=== PATIENT | female | born 1960 | race African-American/Black ===

== ENCOUNTER 2017-09-30 17:25 | Emergency (ER) | payer OTHER ==
[~2017-09-30] VITALS: Ht 177.8 cm; Wt 90.7 kg
[~2017-09-30 17:25] MED LIST: ACETAMINOPHEN-1 EAC1 ORAL; ALBUTEROL SULF8.5 GM INH; AMOXICILLIN500 MG ORAL; AZITHROMYCIN250 MG ORAL; IBUPROFEN600 MG ORAL; NKM; NORCO 5-325 TA1 EACH ORAL; PENICILLIN V P500 MG PO; PROMETHAZINE-C118 M1 ORAL
--- NOTE | 2017-09-30 18:08 | Emergency Room Report ---
History of Present Illness General Chief Complaint: Nausea, Vomiting, and Diarrhea Source: Patient Present Illness HPI 57 yo female presents to ER complaining of flu-like symptoms x5 days. Reports vomiting since yesterday, mostly phlegm in vomit. Patient also complains of cough with sputum. Denies hx of asthma or cardiac disease. Denies history of DM, HTN, hyperlipidemia. Complains of subjective fever. Reports taking Tylenol and Robitussin for relief of symptoms. Complains of difficulty breathing while laying down; reports worsening of symptoms at night. Denies chest pain, SOB, diarrhea, abdominal pain acutely in ER. Denies hx of smoking, drinking, drugs. Reports hx of sick contacts. Allergies: Coded Allergies: No Known Allergies (Unverified , 06/19/13) Patient History Past Medical History: see triage record Social History: Denies: smoking, alcohol use, drug use Immunizations: UTD Reviewed Nursing Documentation: PMH: Agreed, PSxH: Agreed Nursing Documentation-PMH Past Medical History: No Stated History Review of Systems All Other Systems: negative except mentioned in HPI Physical Exam Vital Signs Date Time Temp Pulse Resp B/P (MAP) Pulse Ox O2 Delivery O2 Flow Rate FiO2 09/30/17 17:32 98.4 75 16 145/85 98 Room Air Sp02 EP Interpretation: reviewed, normal General Appearance: no apparent distress, alert, GCS 15, non-toxic Head: normocephalic, atraumatic Eyes: bilateral eye normal inspection, bilateral eye PERRL ENT: hearing grossly normal, normal pharynx, no angioedema, normal voice, TMs + canals normal, uvula midline, nasal congestion, pharyngeal erythema Neck: full range of motion, supple/symm/no masses Respiratory: chest non-tender, lungs clear, normal breath sounds, no rhonchi, no respiratory distress, no accessory muscle use, no wheezing, speaking full sentences Cardiovascular #1: regular rate, rhythm, no edema Cardiovascular #2: 2+ radial (R), 2+ radial (L) Gastrointestinal: normal bowel sounds, non tender, soft, non-distended, no guarding, no rebound Genitourinary: no CVA tenderness Musculoskeletal: back normal, digits/nails normal, gait/station normal, normal range of motion, non-tender Neurologic: alert, oriented x3, responsive, motor strength/tone normal, sensory intact, speech normal Psychiatric: mood/affect normal Skin: normal color, no rash, warm/dry, palpation normal, well hydrated Lymphatic: no adenopathy Medical Decision Making PA Attestation Dr. Garza is my supervising Physician whom patient management has been discussed with. Diagnostic Impression: Primary Impression: Upper respiratory infection, acute Additional Impression: Elevated blood pressure reading ER Course Pt presents to ED c/o flu-like symptoms. DDX considered but are not limited to influenza, viral URI, strep throat, rhinitis, sinusitis, otitis media. VITAL SIGNS patient is afebrile; elevation in BP noted. Results discussed with patient; patient will followup with PCP. ORDERS: none required at this time, diagnosis is clinical. ED COURSE: Patient states she would prefer not to have studies done because it "will be expensive". Discuss with patient SOB when laying flat; patient reports no symptoms of difficulty breathing acutely; states it is breathing through her nose that is more difficult. Denies wheezing, chest pain, SOB at night. Patient does not require EKG and CXR at this time due to lack of CAD risk factors and lack of physical exam findings. Consult with Dr. Garza. Agrees that patient does not require CXR and EKG at this time; likely viral etiology. DISCHARGE: At this time pt is stable for d/c to home. Patient is in no acute distress, talking comfortably, nontoxic appearing. -Rx given for Flonase; instructed patient to not use medication longer than 3 days to prevent rebound congestion. -Rx given for Promethazine cough syrup. Patient to take medications as instructed. Continue to take medications at home for symptomatic relief as needed. Will provide with patient care instructions and any necessary prescriptions. Care plan and follow-up instructions provided. Patient instructed to follow-up with primary care provider in 2-3 days for further treatment and referral; instructed to discuss elevated blood pressure reading. Patient reports understanding and agreement to treatment plan. Patient questions asked and answered. ER precautions given. Patient instructed to return to ER immediately for any new or worsening of symptoms including but not limited to increasing SOB, persistent fever. Last Vital Signs Date Time Temp Pulse Resp B/P (MAP) Pulse Ox O2 Delivery O2 Flow Rate FiO2 09/30/17 17:32 98.4 75 16 145/85 98 Room Air Disposition: HOME, SELF-CARE Condition: Stable Scripts Promethazine Hcl (PROMETHAZINE HCL*) 6.25 Mg/5 Ml Syrup 5 ML ORAL Q8H, #120 ML 0 Refills Prov: Carlos Guardado 09/30/17 Fluticasone Propionate (Flonase Allergy Relief) 9.9 Ml Worth.susp 9.9 ML NS DAILY for 3 Days, SPR Prov: Carlos Guardado 09/30/17 Patient Instructions: Hypertension, [id number], Upper Respiratory Infection, Adult Additional Instructions: Followup with primary care provider in 2-3 days for further treatment and referral. Discuss elevated blood pressure reading. Take medications as directed. Patient questions asked and answered. ER precautions given, patient instructed to return to ER immediately for any new or worsening of symptoms. Carlos Guardado Sep 30, 2017 18:08
[2017-09-30] MEDS ORDERED: Acetaminophen 500mg (ES) tab ORAL ONE (18:15)
[2017-09-30 18:16] VITALS: BP 145/85
[2017-09-30] MEDS ORDERED: FLONASE ALLERG9.9 ML NS (18:23)
[2017-09-30] MEDS ORDERED: PROMETHAZI6.25 MG/1 ORAL (18:23)
[2017-09-30 18:50] VITALS: BP 145/85
== END 2017-09-30 18:50 | disposition home or self-care (01) ==
LOC: EMR 18:15
DX: J06.9 Acute upper respiratory infection, unspecified (principal); R03.0 Elevated blood-pressure reading, without diagnosis of hypertension
CPT/HCPCS: 99284

== ENCOUNTER 2018-09-09 05:28 | Emergency (ER) | payer OTHER ==
[~2018-09-09] VITALS: Ht 177.8 cm; Wt 90.7 kg
[~2018-09-09 05:28] MED LIST changes: +FLONASE ALLERG9.9 ML NS; +PROMETHAZI6.25 MG/1 ORAL
--- NOTE | 2018-09-09 05:47 | NUR ---
ED Nurse Note: Patient walk in c/o left knee pain and swelling for 1x year. Patient reports 10/10 pain. AO4. NAD. VSS. Denies trauma or SOB. ERMD at bedside.
[2018-09-09] MEDS ORDERED: TRAMADOL HCL50 MG ORAL (05:55)
[2018-09-09 06:02] VITALS: BP 124/81
--- NOTE | 2018-09-09 06:03 | NUR ---
ED Nurse Note: Patient cleared for discharge per ERMD. AO4. NAD. VSS. Patient given prescriptions and discharge instructions; verbalized understanding. ID band removed. Patient ambulated out with all personal belongings with steady gait.
--- NOTE | 2018-09-14 14:48 | Emergency Room Report ---
History of Present Illness General Chief Complaint: Lower Extremity Injury Source: Patient Present Illness HPI 58-year-old female presents ED for evaluation. Patient states she's been having left knee pain 1 year. 10 out of 10, throbbing, nonradiating. States it is swollen and needs to be drained. States she's had it drained before. States she is able to walk without difficulty. Denies any recent injury. Denies fevers chills. No other aggravating relieving factors. Denies any other associated symptoms Allergies: Coded Allergies: No Known Allergies (Unverified , 06/19/13) Patient History Past Medical History: none Past Surgical History: none Pertinent Family History: none Social History: Denies: smoking, alcohol use, drug use Last Menstrual Period: MARIALUISA Now: No Immunizations: UTD Reviewed Nursing Documentation: PMH: Agreed; PSxH: Agreed Nursing Documentation-PMH Past Medical History: No Stated History Review of Systems All Other Systems: negative except mentioned in HPI Physical Exam Sp02 EP Interpretation: reviewed, normal General Appearance: no apparent distress, alert, GCS 15, non-toxic Head: normocephalic Eyes: bilateral eye normal inspection, bilateral eye PERRL ENT: normal ENT inspection Neck: normal inspection Respiratory: normal inspection Cardiovascular #1: normal inspection Gastrointestinal: normal inspection Rectal: deferred Genitourinary: no CVA tenderness Musculoskeletal: normal range of motion, tender Neurologic: alert, oriented x3, responsive, motor strength/tone normal, sensory intact, speech normal Psychiatric: normal inspection Skin: normal inspection Lymphatic: normal inspection Procedures Splinting Splinting : Consent: Verbal Pre-Made Type: ALLAN wrap Pre-Proc Neuro Vasc Exam: normal Post-Proc Neuro Vasc Exam: normal Patient Tolerated: Well Complications: None Medical Decision Making Diagnostic Impression: Primary Impression: Knee pain, chronic Qualified Codes: M25.562 - Pain in left knee; G89.29 - Other chronic pain ER Course Hospital Course 58-year-old F presents to ED complaining of L knee pain x 1 year Differential diagnoses include: Fracture, dislocation, sprain, contusion Clinical course Patient placed on stretcher. After initial history, physical exam reveals a middle-aged female in no acute distress. There is full range of motion to the left knee. No crepitus or bruising. No significant fluctuance or effusion appreciated. No erythema. Induration. Patient is ambulating without difficulty as per my assessment. I do not suspect septic joint or gout as patient has had these symptoms for 1 year. Patient is requesting her need to be drained. I explained that there is no emergent indication for knee drainage unless I am suspecting septic joint or gout I splinted the patient that since the knee is not significantly swollen she would need to follow-up with orthopedics as outpatient if she would like her need to be drained. We will provide Allan wrap and short course of pain meds. I will also provide orthopedic referrals Diagnosis - knee pain chronic Stable and discharged to home. apply ice, keep elevated. weight bear as tolerated. Followup with ortho. Return to ED if symptoms recur or worsen Status: improved Disposition: HOME, SELF-CARE Condition: Stable Scripts Tramadol Hcl* (ULTRAM*) 50 Mg Tablet 50 MG ORAL Q6H PRN for For Pain for 3 Days, TAB 0 Refills Prov: Louis Hughes MD 09/09/18 Referrals: [facility] Patient Instructions: Knee Effusion, Cynl-sl-Olor Additional Instructions: Orthopedic urgent care: [address] [address] [place] [address] email: Louis Hughes MD Sep 14, 2018 14:48
== END 2018-09-09 06:02 | disposition home or self-care (01) ==
LOC: EMR 06:00
DX: M25.562 Pain in left knee (principal); G89.29 Other chronic pain
CPT/HCPCS: 99282

== ENCOUNTER 2018-11-24 18:03 | Emergency (ER) | payer OTHER ==
[~2018-11-24] VITALS: Ht 177.8 cm; Wt 98.4 kg
[~2018-11-24 18:03] MED LIST changes: +TRAMADOL HCL50 MG ORAL
[2018-11-24 18:17] VITALS: BP 137/84
--- NOTE | 2018-11-24 18:25 | NUR ---
ED Nurse Note: Pt from home due to non productive coughing x 5 days. No fever and no wheezing noted. Pt is AAO x4, ambulatory.
[2018-11-24] MEDS ORDERED: GUAIFENESIN DM118 M1 ORAL (18:53)
[2018-11-24 18:56] VITALS: BP 128/76
--- NOTE | 2018-11-24 18:56 | NUR ---
ER DISCHARGE NOTE: Patient is cleared to be discharged per ERMD, pt is aox4, on room air, with stable vital signs. pt was given dc and prescription instructions, pt was able to verbalize understanding, pt id band removed. pt is able to ambulate with steady gait. pt took all belongings.
--- NOTE | 2018-11-24 19:03 | Emergency Room Report ---
History of Present Illness General Chief Complaint: Upper Respiratory Illness Source: Patient Present Illness HPI Patient is a 58-year-old female presented after increased cough and congestion. Patient reports having gradual onset of symptoms over the past 3 days she reports having increased nonproductive cough. Patient states that she had worsening cough at night. She denies any hemoptysis or leg pain or swelling. She reports having some weight loss with dieting. She denies any fevers since onset of illness. She reports some improvement in the cough over the past few days. Allergies: Coded Allergies: No Known Allergies (Unverified , 06/19/13) Patient History Past Medical History: see triage record Last Menstrual Period: N/A Now: No : 2 Para: 2 Reviewed Nursing Documentation: PMH: Agreed; PSxH: Agreed Nursing Documentation-PMH Past Medical History: No Stated History Review of Systems All Other Systems: negative except mentioned in HPI Physical Exam Vital Signs Date Time Temp Pulse Resp B/P (MAP) Pulse Ox O2 Delivery O2 Flow Rate FiO2 11/24/18 18:17 98.6 18 137/84 97 Room Air 11/24/18 18:17 87 General Appearance: well appearing, no apparent distress, alert, GCS 15, non- toxic Head: normocephalic, atraumatic ENT: hearing grossly normal, normal voice Neck: full range of motion, supple Respiratory: lungs clear, no respiratory distress, speaking full sentences Cardiovascular #1: normal inspection Gastrointestinal: normal inspection, non tender, soft Musculoskeletal: normal inspection, no calf tenderness Neurologic: normal inspection, alert, oriented x3, responsive, burlap worker III-XII nml as tested, motor strength/tone normal, normal gait Psychiatric: mood/affect normal Skin: no rash Medical Decision Making Diagnostic Impression: Primary Impression: Cough ER Course Patient presented for cough. Differential diagnosis included but was not limited to bronchitis, pneumonia, pulmonary embolism, pericarditis, asthma, foreign body. Patient has a benign exam and does not appear to require any further imaging or laboratory testing at this time. Patient does not appear to have any evidence of systemic toxicity. Patient was given prescription for symptomatic treatment. Patient was noted to have been normotensive with a normal oxygen saturation. Patient was discharged home and advised to return if she began having any increased shortness of breath productive cough fever or other concerns. Last Vital Signs Date Time Temp Pulse Resp B/P (MAP) Pulse Ox O2 Delivery O2 Flow Rate FiO2 11/24/18 18:56 98.2 80 20 128/76 99 Room Air Status: improved Disposition: HOME, SELF-CARE Condition: Stable Scripts Guaifenesin/Dextromethorphan (Guaifenesin Dm Syrup) 5 Ml Syrup 1 TSP ORAL Q8H, #118 ML 0 Refills Prov: Martin Carrasquillo MD 11/24/18 Patient Instructions: Viral Respiratory Infection Martin Carrasquillo MD Nov 24, 2018 19:03
== END 2018-11-24 18:56 | disposition home or self-care (01) ==
LOC: EMR 18:55
DX: R05 Cough (principal)
CPT/HCPCS: 99282

== ENCOUNTER 2018-11-29 23:17 | Emergency (ER) | payer OTHER ==
[~2018-11-29] VITALS: Ht 177.8 cm; Wt 90.7 kg
[~2018-11-29 23:17] MED LIST changes: +GUAIFENESIN DM118 M1 ORAL
--- NOTE | 2018-11-29 23:40 | NUR ---
ED Nurse Note: Patient walked in from home c/o pink eye since . AAO x4, VSS at this time, skin is dry, intact, warm to touch.
[2018-11-30 00:06] VITALS: BP 135/85
[2018-11-30] MEDS ORDERED: GENTAK5 ML RIGHT EYE (00:27)
[2018-11-30 00:30] VITALS: BP 135/85
--- NOTE | 2018-11-30 00:30 | NUR ---
ED Nurse Note: Pt cleared by health care Provider for discharge. DC instructions/prescription was given and explained to pt and verbalized understanding of teachings. All medical deviecs such as ID band removed. Pt is AAO x4, ambulatory and left with all personal belongings.
--- NOTE | 2018-11-30 02:34 | Emergency Room Report ---
History of Present Illness General Chief Complaint: Eye Problems Source: Patient Present Illness HPI Patient presents with complaints of redness and discharge to the right eye This started 2 days ago Patient lives of an itchy feeling to the area there was also increased crusting in the morning time denies any visual changes denies any foreign body contact Denies any headache denies any vomiting or diarrhea Patient has had recent URI symptoms Allergies: Coded Allergies: No Known Allergies (Unverified , 06/19/13) Patient History Past Medical History: see triage record Pertinent Family History: none Last Menstrual Period: n/a Now: No : 4 Para: 4 Reviewed Nursing Documentation: PMH: Agreed; PSxH: Agreed Nursing Documentation-PMH Past Medical History: No History, Except For Review of Systems All Other Systems: negative except mentioned in HPI Physical Exam Vital Signs Date Time Temp Pulse Resp B/P (MAP) Pulse Ox O2 Delivery O2 Flow Rate FiO2 11/29/18 23:20 98.8 86 18 135/85 96 Room Air Sp02 EP Interpretation: reviewed, normal General Appearance: well appearing, no apparent distress Head: normocephalic, atraumatic Eyes: right eye other - Conjunctival erythema pupils are otherwise equally reactive. No signs of proptosis ENT: hearing grossly normal, normal pharynx Neck: supple Respiratory: lungs clear, no retraction, no accessory muscle use Cardiovascular #1: regular rate, rhythm Gastrointestinal: non tender Musculoskeletal: normal inspection Neurologic: alert, oriented x3 Skin: normal color, no rash Lymphatic: no adenopathy Medical Decision Making Diagnostic Impression: Primary Impression: conjunctivitis ER Course Patient's findings are consistent with conjunctivitis given the erythema and the reports of discharge in the morning patient placed on antibiotic drops will have hygiene information provided and stable for close outpatient follow-up Last Vital Signs Date Time Temp Pulse Resp B/P (MAP) Pulse Ox O2 Delivery O2 Flow Rate FiO2 11/30/18 00:30 98.8 18 135/85 96 Room Air 11/29/18 23:20 86 Status: improved Disposition: HOME, SELF-CARE Condition: Stable Scripts Gentamicin Sulfate* (GENTAK*) 5 Ml Drops 1 DROP RIGHT EYE Q4H for 5 Days, #1 DROP 0 Refills Prov: Lili Rosa DO 11/30/18 Referrals: MARBIN KHAN,REFERRING (PCP) Patient Instructions: Bacterial Conjunctivitis, [id number] Additional Instructions: Patient is provided with the discharge instructions notified to follow up with primary doctor in the next 2-3 days otherwise return to the er with any worsening symptoms. Please note that this report is being documented using [employer] technology. This can lead to erroneous entry secondary to incorrect interpretation by the dictating instrument. Lili Rosa DO Nov 30, 2018 02:34
== END 2018-11-30 00:30 | disposition home or self-care (01) ==
LOC: EMR 23:56
DX: H10.9 Unspecified conjunctivitis (principal)
CPT/HCPCS: 99282